=== PATIENT | male | born 1990 | race Caucasian/White ===

== ENCOUNTER 2023-10-08 19:01 | Emergency (ER) | payer OTHER, SELFPAY ==
--- NOTE | ~2023-10-08 | XR_ITS ---
EXAMINATION: AP pelvis and right hip, right elbow and right hand and wrist. CLINICAL INDICATIONS: Fall. Pain. TECHNIQUE: AP pelvis and right hip 3 views. Right elbow 3 views. Right hand and wrist 4 views. FINDINGS: AP PELVIS AND RIGHT HIP: There is normal symmetry of bilateral hip joints and SI joints. No visible acute fracture, dislocation or subluxation seen. The soft tissues are normal. AP and frog-leg views of right hip reveals a maintained hip joint space. No visible acute fracture, dislocation or subluxation. The soft tissues are normal. RIGHT ELBOW: There is a small olecranon process enthesophyte. The elbow joint space is normal. No visible acute fracture, dislocation or loose body seen. The soft tissues are normal. RIGHT HAND/WRIST: There is mild deformity of the fifth metacarpal likely old healed fracture. No acute fracture, dislocation or subluxation seen. The joint spaces are maintained normal. The soft tissues are normal. XR/XR hip RT w PEL1V IMPRESSION: Unremarkable AP pelvis and right hip. Unremarkable right elbow. No acute fracture or dislocation right hand or wrist. There is mild deformity of fifth metacarpal likely old healed fracture.
--- NOTE | ~2023-10-08 | XR_ITS ---
EXAMINATION: AP pelvis and right hip, right elbow and right hand and wrist. CLINICAL INDICATIONS: Fall. Pain. TECHNIQUE: AP pelvis and right hip 3 views. Right elbow 3 views. Right hand and wrist 4 views. FINDINGS: AP PELVIS AND RIGHT HIP: There is normal symmetry of bilateral hip joints and SI joints. No visible acute fracture, dislocation or subluxation seen. The soft tissues are normal. AP and frog-leg views of right hip reveals a maintained hip joint space. No visible acute fracture, dislocation or subluxation. The soft tissues are normal. RIGHT ELBOW: There is a small olecranon process enthesophyte. The elbow joint space is normal. No visible acute fracture, dislocation or loose body seen. The soft tissues are normal. RIGHT HAND/WRIST: There is mild deformity of the fifth metacarpal likely old healed fracture. No acute fracture, dislocation or subluxation seen. The joint spaces are maintained normal. The soft tissues are normal. XR/XR hand wrist RT IMPRESSION: Unremarkable AP pelvis and right hip. Unremarkable right elbow. No acute fracture or dislocation right hand or wrist. There is mild deformity of fifth metacarpal likely old healed fracture.
--- NOTE | ~2023-10-08 | XR_ITS ---
EXAMINATION: AP pelvis and right hip, right elbow and right hand and wrist. CLINICAL INDICATIONS: Fall. Pain. TECHNIQUE: AP pelvis and right hip 3 views. Right elbow 3 views. Right hand and wrist 4 views. FINDINGS: AP PELVIS AND RIGHT HIP: There is normal symmetry of bilateral hip joints and SI joints. No visible acute fracture, dislocation or subluxation seen. The soft tissues are normal. AP and frog-leg views of right hip reveals a maintained hip joint space. No visible acute fracture, dislocation or subluxation. The soft tissues are normal. RIGHT ELBOW: There is a small olecranon process enthesophyte. The elbow joint space is normal. No visible acute fracture, dislocation or loose body seen. The soft tissues are normal. RIGHT HAND/WRIST: There is mild deformity of the fifth metacarpal likely old healed fracture. No acute fracture, dislocation or subluxation seen. The joint spaces are maintained normal. The soft tissues are normal. XR/XR elbow RT 2V IMPRESSION: Unremarkable AP pelvis and right hip. Unremarkable right elbow. No acute fracture or dislocation right hand or wrist. There is mild deformity of fifth metacarpal likely old healed fracture.
[2023-10-08 19:05] VITALS: BP 110/61; PULSE 70; RESP 16; TEMP 37.2; O2SAT 98; BMI 22.0
--- NOTE | 2023-10-08 19:05 | ED.GENADULT ---
HPI - General Adult General Chief complaint: Fall Stated complaint: fall off later earlier today, back/R shoulder pain Time Seen by Provider: 10/08/23 23:44 Source: patient Mode of arrival: ambulatory Limitations: no limitations History of Present Illness HPI narrative: Patient comes to the emergency room complaining of falling off a ladder. Patient states that he was about 5 ft up high on the ladder when he missed a step coming down and landed on the right side of his body. Patient states that he did not hit his head or lose consciousness. Patient denies headache, no neck pain no back pain. Patient states that he mostly has pain in his right elbow, right wrist and right hip. Patient states that after fall he was able to get up and walk. Patient did not lose consciousness, patient on blood thinners. Related Data Previous Rx's Medication Instructions Recorded cyclobenzaprine 10 mg tablet 10 mg PO TID PRN muscle spasm #7 10/09/23 tabs ibuprofen 600 mg tablet 600 mg PO TID PRN fever or pain 10/09/23 #20 tabs Allergies Allergy/AdvReac Type Severity Reaction Status Date / Time No Known Allergies Allergy Verified 10/08/23 19:10 Review of Systems Review of Systems: Constitutional : No Weight loss, No Fever, No Chills, No Night Sweats, No Fatigue, No Malaise ENT/Mouth : No Hearing loss, No Ear Pain, No Nasal Congestion, No Sinus Pain, No Hoarseness, No sore throat, No Rhinorrhea, No Swallowing Difficulty Eyes: No Eye Pain, No Swelling, No Redness, No Foreign Body, No Discharge, No Vision Changes Cardiovascular : No Chest Pain, No SOB, No Dyspnea on Exertion, No Orthopnea, No Edema, No Palpitations Respiratory : No Cough, No Sputum, No Wheezing, No Smoke Exposure, No Dyspnea Gastrointestinal : No Nausea, No Vomiting, No Diarrhea, No Constipation, No abdominal Pain, No Hematochezia, No Melena Genitourinary : no irregular bleeding, No Dysuria, No Urinary Frequency, No Hematuria, No Urinary Incontinence, No Urgency, No Flank Pain, No Urinary Flow Changes, No Hesitancy Musculoskeletal : Complaining of right hip/wrist/elbow pain Skin : No Skin Lesions, No rash Neuro : No Weakness, No Numbness, No Paresthesias, No Loss of Consciousness, No Dizziness, No Headache Psych : No Anxiety/Panic, No Depression, No SI/HI/AH/VH, No Social Issues, Heme/Lymph: No Bruising, No Bleeding,No Lymphadenopathy Endocrine : No Polyuria, No Polydipsia, No Temperature Intolerance [facility] Social History Social History Advance Directives: No Advance Directives Information Provided: No Physical Exam ED Vital Signs: Vital Signs - 24 hr 10/08/23 19:05 10/08/23 21:26 Temperature 99.0 F 98.8 F Pulse Rate 70 68 Respiratory Rate 16 16 Blood Pressure 110/61 118/69 Pulse Oximetry 98 98 Oxygen Delivery Method Room Air Room Air BMI result Body Mass Index 22.0 Const Other: Appearance: Alert. Oriented X3. No acute distress. Eyes: Pupils equal, round and reactive to light. ENT: Pharynx normal. Neck: Normal inspection. Neck supple. No lymph nodes noted. No crepitus CVS: Normal heart rate and rhythm. Pulses normal. Normal S1 and S2 Respiratory: No respiratory distress. Breath sounds normal. No Wheezing. No rales Abdomen: Soft and nontender. No rigidity. No distention. Skin: Skin warm and dry. Normal skin color. Normal skin turgor. There is a small ecchymosis on the right side of the hip. Extremities: No lower extremity edema. No Lacerations. No Rash patient is able to flex and extend both elbows, wrists, knees and hips. Patient ambulatory Neuro: Oriented X 3. No motor deficit. No sensory deficit. Moving all extremities. No slurred speech. CN 2 through 12 grossly intact Psych: calm, cooperative, normal affect Course Course Course Narrative: This is a rapid medical exam: Additional HPI, ROS, PE not included below will be deferred to primary provider. Patient is a 33-year-old male presenting to the emergency department with complaint of right lower back and right elbow and wrist pain after falling approximately 5 feet off a ladder onto concrete around 3-4pm today. Denies head strike or loss of consciousness. Took 800mg ibuprofen prior to arrival with little relief. Not anticoagulated. Abrasion to right elbow, tenderness to lateral epicondyle, full ROM. Abrasion to right hip, no midline spinal tenderness. Denies hematuria. Plan: x-rays, UA Medications Administered Discontinued Medications Generic Name Dose Route Start Last Admin Trade Name Freq PRN Reason Stop Dose Admin Cyclobenzaprine HCl 10 mg 10/09/23 00:31 12/01/23 00:44 Cyclobenzaprine Hcl 10 Mg Tablet PO 10/09/23 00:32 10 mg ONCE ONE Administration Ibuprofen 600 mg 10/09/23 00:31 10/09/23 00:44 Ibuprofen 600 Mg Tablet PO 10/09/23 00:32 600 mg ONCE ONE Administration Medical Decision Making Medical Decision Making [facility] Narrative: -my interpretation of x-rays of the hand/wrist/elbow/hip: No fracture -patient was given p.o. ibuprofen and Flexeril Differential Diagnosis Differential Diagnoses: The differential diagnosis associated with the presentation includes (Contusion, fracture or of full hip/pelvis/elbow/wrist/hand) Lab Data [facility] Lab Attestation statement: I reviewed the patient's lab results. Labs: Lab Results 10/08/23 Range/Units 22:34 Urine Color Yellow Urine Appearance Clear Urine pH 5.5 (5.0-9.0) Ur Specific [place] 1.025 (1.005-1.025) Urine Protein Negative (Neg-Trace) mg/dL Urine Glucose (UA) Negative (Negative) mg/dL Urine Ketones Trace (Negative) mg/dL Urine Blood Negative (Negative) Urine Nitrite Negative (Negative) Ur Leukocyte Esterase Negative (Negative) Independent Interpretation I performed an independent interpretation of an: CT Scan Radiology Impression Discussion of test interpretation with radiology: I have reviewed the radiologist's reading. Radiologist Impression: FINDINGS: AP PELVIS AND RIGHT HIP: There is normal symmetry of bilateral hip joints and SI joints. No visible acute fracture, dislocation or subluxation seen. The soft tissues are normal. AP and frog-leg views of right hip reveals a maintained hip joint space. No visible acute fracture, dislocation or subluxation. The soft tissues are normal. RIGHT ELBOW: There is a small olecranon process enthesophyte. The elbow joint space is normal. No visible acute fracture, dislocation or loose body seen. The soft tissues are normal. RIGHT HAND/WRIST: There is mild deformity of the fifth metacarpal likely old healed fracture. No acute fracture, dislocation or subluxation seen. The joint spaces are maintained normal. The soft tissues are normal. XR/XR elbow RT 2V IMPRESSION: Unremarkable AP pelvis and right hip. Unremarkable right elbow. No acute fracture or dislocation right hand or wrist. There is mild deformity of fifth metacarpal likely old healed fracture. Discharge Plan Discharge Clinical Impression: Fall, Contusion Patient Disposition: Home, Self-Care Instructions: Contusion in Adults (ED), Fall Prevention (ED) Additional Instructions: Please follow-up with your primary care physician tomorrow. If you have any worsening or new symptoms, please return to the emergency room or call 911 Prescriptions: New cyclobenzaprine 10 mg tablet 10 mg PO TID PRN (Reason: muscle spasm) Qty: 7 0RF ibuprofen 600 mg tablet 600 mg PO TID PRN (Reason: fever or pain) Qty: 20 0RF Stand Alone Forms: Work/School Release
[2023-10-08 21:26] VITALS: BP 118/69; PULSE 68; RESP 16; TEMP 37.1; O2SAT 98
[2023-10-08 22:41] LABS: Appearance Urine Clear; Color Urine Yellow; Glucose Urine UA Negative (Negative); Leukocyte Esterase Urine Negative (Negative); Nitrite Urine Negative (Negative); PH 5.5 (5.0-9.0); Specific Gravity - Urine 1.025 (1.005-1.025); Urine Blood Negative (Negative); Urine Ketones Trace mg/dL (Negative); Urine Protein Negative (Neg-Trace)
[2023-10-09] MEDS: Ibuprofen 600 MG TABLET PO (00:44)
[2023-10-09] MEDS: Cyclobenzaprine HCl 10 MG TABLET PO (00:44)
== END 2023-10-09 01:06 | disposition home or self-care (01) ==
PROVIDERS: Registered Nurse Emergency; Emergency Provider Emergency Medicine
DX: S29.9XXA Unspecified injury of thorax, initial encounter (principal); S79.911A Unspecified injury of right hip, initial encounter; S69.91XA Unspecified injury of right wrist, hand and finger(s), initial encounter; M79.641 Pain in right hand; M79.601 Pain in right arm; W11.XXXA Fall on and from ladder, initial encounter; Y93.9 Activity, unspecified; Y92.9 Unspecified place or not applicable; Y99.9 Unspecified external cause status
CPT/HCPCS: 73070; 73110; 73130; 73502; 81003; 99283